=== PATIENT | female | born 1990 | race Caucasian/White ===

== ENCOUNTER 2018-11-17 11:44 | Outpatient (CLI) | payer MEDICAID, SELFPAY | END 2018-11-17 12:04 | PROVIDERS: Visit Provider Nurse Practitioner Women's Health | DX: Z32.01 Encounter for pregnancy test, result positive (principal); Z78.9 Other specified health status | CPT/HCPCS: 36415; 84702 ==

== ENCOUNTER 2019-01-24 10:54 | Outpatient (CLI) | payer MEDICAID, SELFPAY ==
--- NOTE | 2019-01-24 14:03 | DI.US_ITS ---
EXAM: US PELVIS AND TRANSVAGINAL CLINICAL HISTORY: PERSISTENT LT LOWER QUAD PAIN, POST MEDICATION 11/28/18, PLEASE R/O STRUCT URAL ABNORMALITY TECHNIQUE: Ultrasound performed using standard protocol. COMPARISON: No exams were available for comparison FINDINGS: Scanning of the kidneys is unremarkable. Thickened heterogeneous vascular endometrial stripe. IMPRESSION: This appearance could be caused by endometritis. Please correlate clinically.
== END 2019-01-24 11:14 ==
PROVIDERS: Visit Provider Nurse Practitioner Women's Health
DX: R10.32 Left lower quadrant pain (principal); R93.89 Abnormal findings on diagnostic imaging of other specified body structures
CPT/HCPCS: 76830; 76856

== ENCOUNTER 2019-02-07 00:33 | Outpatient (CLI) | payer MEDICAID, SELFPAY ==
--- NOTE | 2019-02-07 13:51 | DI.US_ITS ---
EXAM: US PELVIS AND TRANSVAGINAL CLINICAL HISTORY: F/U ENDOMETRITIS, INCREASED CRAMPING TECHNIQUE: Ultrasound performed using standard protocol. Transabdominal and transvaginal exams wer e performed. COMPARISON: US PELVIS AND TRANSVAGINAL from 01/24/2019 FINDINGS: Uterus measures 10 x 4.6 x 5.2 cm. The endometrium is again noted to be thickened and heterogeneous and shows increased blood flow. The endometrial stripe has increased in thickness to 22.9 millimeter s compared with 12.9 millimeters on the previous exam. A 2.8 centimeter simple-appearing cyst or dom inant follicle is seen on the left ovary. There is no evidence of ovarian torsion. No free fluid or hydronephrosis is seen. IMPRESSION: Interval increase in endometrial thickness, now 2.3 cm. Endometrium remains hypervascular.
== END 2019-02-07 00:53 ==
PROVIDERS: Visit Provider Nurse Practitioner Women's Health
DX: N71.9 Inflammatory disease of uterus, unspecified (principal); N83.292 Other ovarian cyst, left side
CPT/HCPCS: 76830; 76856

== ENCOUNTER 2019-02-12 10:50 | Outpatient (CLI) | payer MEDICAID, SELFPAY ==
[2019-02-12 11:42] LABS: HCT 42.7 % (36.0-46.0); HGB 13.6 g/dL (12.0-15.5); Mean Corp. HGB Concentration 31.9 g/dL (32.0-36.0); Mean Corpuscular Hemoglobin 28.2 pg (27.0-33.0); Mean Corpuscular Volume 88.6 fL (80-95); Mean Platelet Volume 11.4 fL (8.0-11.0); Platelet Count 253 x1000/uL (130-400); RBC 4.82 m/cumm (4.00-5.20); RBC Distribution Width 12.5 % (11.7-14.6); White Blood Cell Count 7.01 k/cumm (4.4-10.8)
== END 2019-02-12 11:10 ==
PROVIDERS: Visit Provider Obstetrics & Gynecology Gynecology
DX: N71.9 Inflammatory disease of uterus, unspecified (principal)
CPT/HCPCS: 36415; 85027; 86850; 86900; 86901

== ENCOUNTER 2019-02-14 07:46 | Day surgery (SDC) | payer MEDICAID, SELFPAY ==
[2019-02-14 08:02] VITALS: BP 117/82; PULSE 71; RESP 18; TEMP 36.6; O2SAT 97
[2019-02-14] MEDS: Lactated Ringers 1,000 ML 125 ML IV (08:28)
--- NOTE | 2019-02-14 09:00 | DI.US_ITS ---
EXAM: US NEEDLE LOCAL OTHER WO RAD CLINICAL HISTORY: US GUIDED D AND C IN OR W/ OBGYN TECHNIQUE: Ultrasound performed using standard protocol. COMPARISON: US PELVIS AND TRANSVAGINAL from 02/07/2019 FINDINGS: Ultrasound guidance was utilized by Dr. Coles during reported endometrial biopsy. Please see Dr. Coles's procedure note. Endometrial stripe measures about 10 millimeters in thickness as visualiz ed and is mildly heterogeneous and of low echogenicity.
--- NOTE | 2019-02-14 10:00 | POCSPONT_PTH ---
PATIENT: Zuleyma Leiva LOC: [facility] U#:[id number] AGE/SX: 29/F ROOM: RE02/14/[address]: Mirian Coles : 1990 BED: DIS: 02/14/2019 SPEC #: [id number] RECD: 02/14/19 12:50 STATUS: JOSE LUIS REQ #: [id number] LISSA: 02/14/19 10:[address]: Mirian Coles DEPT: Surgical Specimen RECD BY: Patito Augustine ENTERED: 02/14/19 12:50 SP TYPE: POCTERRI MCKEON DR: None Tissues: 1 - ,SPONTANEOUS Procedures: GROSS AND MICRO LEVEL 4 Comments: [id number]
[2019-02-14] MEDS: Bupivacaine 0.25% Pres-Free 30 ML VIAL (10:15)
--- NOTE | 2019-02-14 10:31 | W.PM.DSUDISC ---
Discharge Plan Disposition Patient Disposition: HOME Condition: Good Discharge Details Attending Provider: Mirian oCles Primary Care Provider: None,None Home Meds and New Rx's Prescriptions: No Action doxycycline monohydrate 100 mg capsule 100 mg PO DAILY Qty: 3 RF: 0 fluconazole 150 mg tablet 150 mg PO Q3D Qty: 2 RF: 1 sertraline 100 MG tablet 100 mg PO DAILY RF: 0 Discharge Instructions Additional Instructions: Take your remaining doxycycline 100 mg tablet upon arrival home today. Nothing in the vagina until your postop visit with Dr. Coles in approximately 2 weeks. You can expect light uterine bleeding for the next week. Stand Alone Forms: DSU Post Gynecology Surgery Activity:: Activity as Tolerated Diet:: As Tolerated Discharge Orders Discharge Orders: Discharge Order (Routine); Ordered 02/14/19 Ordered By: Mirian Coles DS: Diagnosis Discharge Diagnosis (1) Endometritis: Status: Acute (2) Endometrial thickening on ultrasound: Status: Acute
--- NOTE | 2019-02-14 10:35 | W.PM.OP ---
Date of service: 02/14/19 Time of Service: 10:35 Operative Note Operative Note DATE OF PROCEDURE: 02/14/19 PRE-OP DIAGNOSIS: Recurrent endometritis. Retained products of conception. POST-OP DIAGNOSIS: same PROCEDURE: Cervical dilation and uterine evacuation with suction using ultrasound guidance SURGEON: Mirian Coles ANESTHESIA: MAC ESTIMATED BLOOD LOSS: 10 PATHOLOGY: other (Uterine contents to pathology) COMPLICATIONS: None Patient was transported to: same day Patient's condition: stable Indications: 29-year-old female status post medical termination of a 32,019. She continued to have thickened endometrial stripe and was treated for recurrent endometritis twice after the procedure. I recommend to the patient that she undergo a cervical dilation and suction evacuation of uterine contents. Findings: Thickened endometrial stripe transabdominal ultrasound. Uterine cavity clear after suction evacuation. Possible necrotic tissue versus retained products of conception. Procedure Description: Patient was taken to the operating room where she is placed in the dorsal supine position and a surgical timeout was performed. Monitored anesthesia care was then administered and she was placed in dorsal lithotomy position in [facility] with SCDs in place. Patient was prepped and draped in the usual sterile fashion bivalve speculum was placed in the vagina and the anterior lip of the cervix was infiltrated with quarter percent Marcaine a paracervical block was performed with quarter percent Marcaine at the 4 and 8:00 cervical vaginal interface. Cervix was then sequentially dilated to a maximum of 20 Mason after a single-tooth tenaculum was applied to the anterior lip of the cervix. The uterus was sounded to a depth of 8 cm. A transabdominal ultrasound was performed while a #8 suction cannula was inserted into the uterine cavity attached to suction in all 4 quadrants of the uterine cavity were sequentially suction curetted. There was no visible tissue present within the uterine cavity as demonstrated by the ultrasound at the completion of the procedure. A banjo curette was then used and all 4 quadrants of the uterine cavity were then gently banjo curetted with no tissue returned. A final inspection of the uterine cavity was performed with the transabdominal ultrasound and the uterine cavity appeared clear of any retained products of conception. The tenaculum was removed from the Intralipid cervix the tenaculum site was no be hemostatic all instruments removed from the patient's vagina. She was then placed in the dorsal supine position awakened and transported recovery area in stable condition all sponge lap needle counts correct x2.
[2019-02-14 11:00] VITALS: BP 117/80; PULSE 65; RESP 18; TEMP 36.1; O2SAT 97
== END 2019-02-14 11:15 | disposition home or self-care (01) ==
PROVIDERS: Visit Provider Obstetrics & Gynecology Gynecology
PROC: (CPT 59841; principal; 2019-02-14 09:15)
DX: O03.5 Genital tract and pelvic infection following complete or unspecified spontaneous abortion (principal); R93.89 Abnormal findings on diagnostic imaging of other specified body structures
CPT/HCPCS: 59812; 76998; 88305; 76942; J1100; J1885; J2405; J3010

== ENCOUNTER 2019-04-04 16:36 | Outpatient (REF) | payer MEDICAID, SELFPAY ==
[2019-04-06 12:29] LABS: Chlamydia Result Negative (Negative); GC Result Negative (Negative)
== END 2019-04-04 16:56 ==
LOC: LBN 16:36
PROVIDERS: Visit Provider Obstetrics & Gynecology Gynecology
DX: Z11.3 Encounter for screening for infections with a predominantly sexual mode of transmission (principal)
CPT/HCPCS: 87491; 87591

== ENCOUNTER 2020-04-08 15:49 | Outpatient (CLI) | payer MEDICAID, SELFPAY ==
[2020-04-10 10:15] LABS: Hepatitis C Ab w Rflx HCV PCR Negative (Negative)
[2020-04-10 10:18] LABS: HIV-1/2 Ag & Ab Screen Negative (Negative)
[2020-04-11 10:00] LABS: Syphilis Total Ab w/Reflex Nonreactive (Nonreactive)
== END 2020-04-08 16:09 ==
PROVIDERS: Nurse Practitioner Women's Health; Visit Provider Obstetrics & Gynecology
DX: Z11.3 Encounter for screening for infections with a predominantly sexual mode of transmission (principal); Z11.4 Encounter for screening for human immunodeficiency virus [HIV]; Z11.59 Encounter for screening for other viral diseases
CPT/HCPCS: 36415; 86803; 87389; 86780

== ENCOUNTER 2020-04-08 15:59 | Outpatient (REF) | payer MEDICAID, SELFPAY ==
--- NOTE | 2020-04-08 15:40 | PAPFT_PTH ---
PATIENT: Zuleyma Leiva LOC: [facility] U#:[id number] AGE/SX: 30/F ROOM: RE04/08/[address]: Kim Dewey NP : 1990 BED: DIS: 04/08/2020 SPEC #: [id number] RECD: 04/08/20 17:41 STATUS: JOSE LUIS REJazzmine #: [id number] LISSA: 04/08/20 15:[address]: Kim Dewey NP DEPT: [facility] Cytology RECD BY: Patito Augustine ENTERED: 04/08/20 17:41 SP TYPE: PAPFT OTHR DR: None Tissues: 1 - CX/ENDOCX FOR PAP SMEARS Procedures: PAP THIN PREP/UVM Screening HPV DNA PROBE Comments: [id number] (CHLAMYDIA/GC)
[2020-04-09 14:42] LABS: Chlamydia Result Negative (Negative); GC Result Negative (Negative)
== END 2020-04-08 16:19 ==
LOC: LBN 15:59
PROVIDERS: Visit Provider Nurse Practitioner Women's Health
DX: Z11.3 Encounter for screening for infections with a predominantly sexual mode of transmission (principal); Z12.4 Encounter for screening for malignant neoplasm of cervix; R87.612 Low grade squamous intraepithelial lesion on cytologic smear of cervix (LGSIL); Z11.51 Encounter for screening for human papillomavirus (HPV)
CPT/HCPCS: 87491; 87591; 88142; 87624

== ENCOUNTER 2020-05-19 19:05 | Outpatient (REF) | payer MEDICAID, SELFPAY ==
[2020-05-21 10:33] LABS: Chlamydia Result Negative (Negative); GC Result Negative (Negative)
== END 2020-05-19 19:06 | disposition home or self-care (01) ==
LOC: LBN 19:05
PROVIDERS: Visit Provider Nurse Practitioner Women's Health
DX: Z11.3 Encounter for screening for infections with a predominantly sexual mode of transmission (principal)
CPT/HCPCS: 87491; 87591

== ENCOUNTER 2020-06-24 02:05 | Outpatient (CLI) | payer MEDICAID, SELFPAY ==
--- NOTE | 2020-06-24 07:00 | DI.US_ITS ---
EXAM: MG MAMMO DIAGNOSTIC BI CLINICAL HISTORY: bilat tenderness, R nipple d/c pruritis,MASTODYNIA,N64.4,N64.52 TECHNIQUE: Mammograms were interpreted according to the usual protocol including computer analysis w [employer] CAD system, tomosynthesis and C-view imaging. COMPARISON: FINDINGS: Bilateral mammogram and right breast ultrasound are interpreted in conjunction. The patient reported ly has a question palpable retro areolar right breast mass and right bloody nipple discharge. The breasts are heterogeneously dense. No dominant mass or clumped microcalcification is identified mammographically. Today's examination is a baseline examination. Breast ultrasound of the region of questionable palpable abnormality shows dense breast tissue withou t evidence of a focal mass or cyst. No ductal dilatation identified. IMPRESSION: Negative mammogram and right breast ultrasound. The negative mammogram and ultrasound not entirely e xclude the possibility of malignancy and should not preclude biopsy of any clinically suspicious palp able breast mass. BI-RADS Category 1 - Negative Breast Density - Category C - Heterogeneously dense
--- NOTE | 2020-06-24 09:47 | DI.MAMMO_ITS ---
EXAM: MG MAMMO DIAGNOSTIC BI CLINICAL HISTORY: bilat tenderness, R nipple d/c pruritis,MASTODYNIA,N64.4,N64.52 TECHNIQUE: Mammograms were interpreted according to the usual protocol including computer analysis w [employer] CAD system, tomosynthesis and C-view imaging. COMPARISON: FINDINGS: Bilateral mammogram and right breast ultrasound are interpreted in conjunction. The patient reported ly has a question palpable retro areolar right breast mass and right bloody nipple discharge. The breasts are heterogeneously dense. No dominant mass or clumped microcalcification is identified mammographically. Today's examination is a baseline examination. Breast ultrasound of the region of questionable palpable abnormality shows dense breast tissue withou t evidence of a focal mass or cyst. No ductal dilatation identified. IMPRESSION: Negative mammogram and right breast ultrasound. The negative mammogram and ultrasound not entirely e xclude the possibility of malignancy and should not preclude biopsy of any clinically suspicious palp able breast mass. BI-RADS Category 1 - Negative Breast Density - Category C - Heterogeneously dense
== END 2020-06-24 02:25 ==
PROVIDERS: Visit Provider Nurse Practitioner Women's Health
DX: N64.4 Mastodynia (principal); N64.52 Nipple discharge
CPT/HCPCS: 76642; 77062; 77066; G0279

== ENCOUNTER 2021-02-24 16:49 | Outpatient (REF) | payer MEDICAID, SELFPAY ==
[2021-02-26 13:18] LABS: Chlamydia Result Negative (Negative); GC Result Negative (Negative)
== END 2021-02-24 16:50 | disposition home or self-care (01) ==
LOC: LBN 16:49
PROVIDERS: Visit Provider Nurse Practitioner Women's Health
DX: Z11.3 Encounter for screening for infections with a predominantly sexual mode of transmission (principal)
CPT/HCPCS: 87491; 87591

== ENCOUNTER 2021-08-26 11:44 | Outpatient (REF) | payer MEDICAID, SELFPAY ==
--- NOTE | 2021-08-26 10:45 | PAPFT_PTH ---
PATIENT: Zuleyma Leiva LOC: [facility] U#:[id number] AGE/SX: 31/F ROOM: RE08/26/[address]: Kim Dewey NP : 1990 BED: DIS: 08/26/2021 SPEC #: [id number] RECD: 08/26/21 18:02 STATUS: JOSE LUIS REJazzmine #: [id number] LISSA: 08/26/21 10:[address]: Kim Dewey NP DEPT: [facility] Cytology RECD BY: Patito Augustine Tissues: 1 - CX/ENDOCX FOR PAP SMEARS Procedures: PAP THIN PREP/UVM Screening HPV DNA PROBE Comments: [id number]
== END 2021-08-26 11:45 | disposition home or self-care (01) ==
LOC: LBN 11:44
PROVIDERS: Visit Provider Nurse Practitioner Women's Health
DX: Z12.4 Encounter for screening for malignant neoplasm of cervix (principal); Z11.51 Encounter for screening for human papillomavirus (HPV); R87.810 Cervical high risk human papillomavirus (HPV) DNA test positive
CPT/HCPCS: 88142; 87624

== ENCOUNTER 2021-09-23 16:29 | Outpatient (REF) | payer MEDICAID, SELFPAY ==
--- NOTE | 2021-09-23 15:40 | ENDO_PTH ---
PATIENT: Zuleyma Leiva LOC: [facility] U#:[id number] AGE/SX: 31/F ROOM: RE09/23/[address]: Jocelynn Cope DO : 1990 BED: DIS: 09/23/2021 SPEC #: [id number] RECD: 09/24/21 10:00 STATUS: JOSE LUIS REQ #: [id number] LISSA: 09/23/21 15:[address]: Jocelynn Cope DEPT: Surgical Specimen RECD BY: Sharmaine Leblanc ENTERED: 09/24/21 10:02 SP TYPE: Endo OTHR DR: Unknown,Unknown Tissues: 1 - ENDOCERVICAL BX/CURRETTE Procedures: GROSS AND MICRO LEVEL 4 Comments: [id number]
== END 2021-09-23 16:30 | disposition home or self-care (01) ==
LOC: LBN 16:29
PROVIDERS: Visit Provider Obstetrics & Gynecology
DX: R87.810 Cervical high risk human papillomavirus (HPV) DNA test positive (principal)
CPT/HCPCS: 88305

== ENCOUNTER 2022-06-16 14:57 | Outpatient (REF) | payer MEDICAID, SELFPAY | END 2022-06-16 14:58 | disposition home or self-care (01) | LOC: LBN 14:57 | PROVIDERS: Visit Provider Obstetrics & Gynecology | DX: N89.8 Other specified noninflammatory disorders of vagina (principal) | CPT/HCPCS: 87480; 87510; 87660 ==

== ENCOUNTER 2022-06-22 02:09 | Outpatient (CLI) | payer MEDICAID, SELFPAY ==
--- NOTE | 2022-06-22 07:00 | DI.US_ITS ---
Exam(s) US PELVIS TRANSVAGINAL EXAM: US PELVIS TRANSVAGINAL CLINICAL HISTORY: pelvic pain,pelvic pressure, iud surveillance, r10.2,z30.431 TECHNIQUE: Transabdominal and transvaginal imaging was performed using standard protocol. COMPARISON: US US PELVIS TRANSVAGINAL from 02/07/2019 FINDINGS: UTERUS: Anteverted. 8.6 x 3.8 x 5.3 cm Endometrium: IUD present within endometrium. Four mm Myometrium: Unremarkable. Cervix: Unremarkable. OVARIES: Right: Cyst or mass: None. Left: Cyst or mass: None. DOPPLER: Color: Symmetric and uniform flow to both ovaries. No hyperemia. CUL-DE-SAC: Free fluid: None. IMPRESSION: 1. Normal-appearing uterus with endometrial stripe within normal limits. IUD present. 2. Unremarkable bilateral ovaries. DATA REPOSITORY:
== END 2022-06-22 02:29 ==
PROVIDERS: Visit Provider Obstetrics & Gynecology
DX: R10.2 Pelvic and perineal pain (principal); Z30.431 Encounter for routine checking of intrauterine contraceptive device
CPT/HCPCS: 76830; 76856

== ENCOUNTER 2022-10-20 12:54 | Outpatient (REF) | payer MEDICAID, SELFPAY ==
[2022-10-21 13:31] LABS: Chlamydia Result Negative (Negative); GC Result Negative (Negative)
== END 2022-10-20 12:55 | disposition home or self-care (01) ==
LOC: LBN 12:54
PROVIDERS: Visit Provider Advanced Practice Midwife
DX: R10.2 Pelvic and perineal pain (principal); R82.998 Other abnormal findings in urine
CPT/HCPCS: 87491; 87591; 87086; 87480; 87510; 87660

== ENCOUNTER 2022-11-03 16:23 | Outpatient (REF) | payer MEDICAID, SELFPAY ==
--- NOTE | 2022-11-03 16:02 | PAPFT_PTH ---
PATIENT: Zuleyma Leiva LOC: [facility] U#:[id number] AGE/SX: 32/F ROOM: RE11/03/[address]: Dinora Pratt MD : 1990 BED: DIS: 11/03/2022 SPEC #: [id number] RECD: 11/04/22 18:24 STATUS: JOSE LUIS REJazzmine #: [id number] LISSA: 11/03/22 16:[address]: Dinora Pratt DEPT: [facility] Cytology RECD BY: Naina Sharma Tissues: 1 - CX/ENDOCX FOR PAP SMEARS Procedures: PAP THIN PREP/UVM Screening HPV DNA PROBE Comments: [id number] (CHLAMYDIA/GC)
[2022-11-05 15:17] LABS: Chlamydia Result Negative (Negative); GC Result Negative (Negative)
== END 2022-11-03 16:24 | disposition home or self-care (01) ==
LOC: LBN 16:23
PROVIDERS: Visit Provider Obstetrics & Gynecology
DX: Z11.3 Encounter for screening for infections with a predominantly sexual mode of transmission (principal); Z12.4 Encounter for screening for malignant neoplasm of cervix; Z11.51 Encounter for screening for human papillomavirus (HPV)
CPT/HCPCS: 87491; 87591; 88142; 87624

== ENCOUNTER 2024-04-04 16:30 | Outpatient (REF) | payer MEDICAID, SELFPAY | END 2024-04-04 16:31 | disposition home or self-care (01) | LOC: LBN 16:30 | PROVIDERS: Visit Provider Obstetrics & Gynecology Gynecology | DX: N89.8 Other specified noninflammatory disorders of vagina (principal); N94.89 Other specified conditions associated with female genital organs and menstrual cycle | CPT/HCPCS: 87480; 87510; 87660 ==